=== PATIENT | female | born 1955 | race Caucasian/White ===

== ENCOUNTER 2016-11-19 05:53 | Day surgery (SDC) | payer BC ==
[~2016-11-19 05:53] MED LIST: Dextrose 5%-Lactated Ringers 1,000 ML IV SCH
[2016-11-19] MEDS ORDERED: Glycopyrrolate 0.2 MG/ML 2 ML SYRINGE IVPUSH ONE (06:45)
[2016-11-19] MEDS ORDERED: Midazolam 1 MG/ML 2 ML SDV ONE (06:52)
[2016-11-19] MEDS ORDERED: fentaNYL 100 MCG/2 ML SDV ONE (06:52)
[2016-11-19] MEDS ORDERED: Propofol 200 MG/20 ML SDV ONE (06:52)
[2016-11-19] MEDS ORDERED: Glycopyrrolate 0.2 MG/ML 2 ML SDV IVPUSH ONE (07:15)
[2016-11-19 08:18] VITALS: BP 117/78
--- NOTE | 2016-11-23 14:26 | OR ---
DATE OF PROCEDURE: 11/19/2016 PREOPERATIVE DIAGNOSIS: History of perforated duodenal ulcer. POSTOPERATIVE DIAGNOSIS: Healed duodenal ulcer. OPERATIVE PROCEDURE: Esophagogastroduodenoscopy with biopsies of antrum for CLOtest. ANESTHESIA: IV sedation. INDICATION FOR PROCEDURE: The patient is approximately a month status post a perforated duodenal ulcer which was treated in [place] non-operatively. She presently is on Prilosec 40 mg a day and feeling good from the stomach standpoint. Plan is to proceed with upper GI endoscopy with biopsies as indicated to evaluate the extent of healing of the duodenal ulcer. The patient also apparently has not been tested to any extent for H pylori as of yet. So, a CLOtest will be obtained. Potential risks including bleeding and perforation were discussed, and the patient wishes to proceed. The patient was taken to the operating room and placed in a left lateral decubitus position. IV sedation was administered, after which the upper GI endoscope was passed orally through the esophagus into the stomach with retroflexion into fundus, and thereafter through the pyloric channel and into the proximal duodenum. Findings included a normal hypopharynx esophageal sphincter, and esophageal body at the EG junction. No hiatal hernia was noted and no significant inflammation seen. Within the stomach, there was a very small amount of retained bile. There was no real evident gastritis at any point within the stomach. As one passed through the pyloric channel interestingly the site of the duodenal ulcer was quite obvious with there being an area of concavity anteriorly. This was however entirely healed at this point, covered with normal appearing mucosa. The remainder of the duodenum at the junction of the third and fourth portions was unremarkable. At this point, biopsies obtained from the antrum and sent for CLOtest for H. pylori. Minimal bleeding from the biopsy sites were seen and the procedure then concluded. The plan will be to have the patient continue on omeprazole. If CLOtest is positive, we will contact her and begin the treatment for the H pylori. If however it is negative, I think it would be worth doubly checking H pylori with some other testing mechanism as well. We will contact the patient when we get the CLOtest back and determine whether additional testing or treatment should be undertaken. Otherwise, she should be following with Carrol Coley in [facility] in 2 weeks. Serjio Alcala MD /[id number]
== END 2016-11-19 08:38 | disposition home or self-care (01) ==
LOC: JP.SDS 05:53
PROVIDERS: ATTEND Surgery
DX: K26.5 Chronic or unspecified duodenal ulcer with perforation (principal); Z88.8 Allergy status to other drugs, medicaments and biological substances; Z91.040 Latex allergy status
CPT/HCPCS: 43239; 87081; J2250; J2704; J3010; J7042

== ENCOUNTER 2017-09-13 09:32 | Emergency (ER) | payer BC, OTHER ==
[2017-09-13 10:14] VITALS: BP 113/72
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
--- NOTE | 2017-09-13 11:14 | CR ---
Left knee Findings: There is evidence of cortical disruption with approximately 2 mm depression of the lateral tibial plateau. The finding is concerning for an acute fracture. There is a moderate joint effusion. Impression: 1. Evidence for nondisplaced lateral tibial plateau fracture with associated joint effusion. CT of th e knee is recommended for confirmation.
--- NOTE | 2017-09-13 12:14 | CT ---
Left knee CT. History: Evaluate for lateral tibial plateau fracture. Technique: Axial images were obtained of the knee. Sagittal and coronal images were reconstructed. Total DLP: 131. Findings: There is a minimally displaced fracture involving the lateral tibial plateau. There is appr oximately 2 mm of depression. No additional fractures are seen. There is a moderate joint effusion. T here is a large Elizalde's cyst posteriorly measuring 5.3 x 2.7 cm. Impression: 1. Minimally displaced lateral tibial plateau fracture. 2. Joint effusion. 3. Elizalde's cyst.
== END 2017-09-13 12:03 | disposition home or self-care (01) ==
LOC: JP.ED 09:32
DX: M25.562 Pain in left knee (principal); Z91.040 Latex allergy status; Z88.5 Allergy status to narcotic agent; Z88.8 Allergy status to other drugs, medicaments and biological substances
CPT/HCPCS: 73562-26-LT; 73562-LT; 73700-26-LT; 73700-LT; 99283

== ENCOUNTER 2022-05-28 05:57 | Day surgery (SDC) | payer MEDICARE, BC ==
[2022-05-28] MEDS ORDERED: Dextrose 5%-Lactated Ringers 1,000 ML IV SCH (06:30)
[2022-05-28] MEDS ORDERED: Propofol 200 MG/20 ML SDV ONE (06:58)
[2022-05-28] MEDS ORDERED: fentaNYL 50 MCG/ML SDV ONE (06:58)
[2022-05-28] MEDS ORDERED: Midazolam 1 MG/ML 2 ML SDV ONE (06:58)
[2022-05-28 08:51] VITALS: BP 134/82; PULSE 73
== END 2022-05-28 09:20 | disposition home or self-care (01) ==
LOC: JP.SDS 05:57
PROVIDERS: ATTEND Surgery
DX: K62.5 Hemorrhage of anus and rectum (principal); K64.8 Other hemorrhoids; N18.9 Chronic kidney disease, unspecified; Z91.040 Latex allergy status; Z88.6 Allergy status to analgesic agent; Z79.899 Other long term (current) drug therapy
CPT/HCPCS: 45378; 46221; J2250; J2704; J3010; J7121